=== PATIENT | female | born 1935 | race Hispanic/Latino ===

== ENCOUNTER 2020-09-21 06:19 | Day surgery (SDC) | payer MEDICARE ==
[~2020-09-21 06:19] MED LIST: LACTATED RINGERS 1,000 ML IV SCH
[2020-09-21] MEDS ORDERED: ceFAZolin/Water 2 GM/20 ML 2 GM/20 ML SYRINGE IV NR (08:17)
[2020-09-21] MEDS ORDERED: ONDANSETRON 4 MG/2 ML INJ IV PRN (08:23)
[2020-09-21] MEDS ORDERED: fentaNYL 100 MCG/2 ML INJ IV PRN (08:23)
--- NOTE | 2020-09-21 08:23 | Anesthesia Consultation ---
Anesthesia Consult and Med Hx Date of service: 09/21/20 - Airway Anesthetic Teeth Evaluation: Dentures (full upper and lower) ROM Head & Neck: Adequate Mental/Hyoid Distance: Adequate Mallampati Class: Class II Intubation Access Assessment: Probably Good - Pulmonary Exam CTA: Yes - Cardiac Exam Cardiac Exam: RRR - Pre-Operative Health Status ASA Pre-Surgery Classification: ASA3 Proposed Anesthetic Plan: General - Pulmonary Hx Smoking: Yes (quit >25yrs ago) Hx Respiratory Symptoms: No Hx Sleep Apnea: No (DARIANA PRE SCREEN LOW RISK) - Cardiovascular System Hx Hypertension: Yes (took antihypertensives this morning) Hx Heart Attack/AMI: No Hx Percutaneous Transluminal Coronary Angioplasty (PTCA): No Hx Cardia Arrhythmia: No - Central Nervous System CVA: No - Gastrointestinal Hx Gastroesophageal Reflux Disease: No (esophageal stricture s/p dilatations) - Endocrine Hx Renal Disease: No Hx Liver Disease: No Hx Insulin Dependent Diabetes: No Hx Non-Insulin Dependent Diabetes: No Hx Hypothyroidism: Yes (took synthroid this morning) - Other Systems Hx Obesity: Yes (BMI 30) - Additional Comments Anesthesia Medical History Comments: No hx anesthetic complications.
--- NOTE | 2020-09-21 08:23 | Anesthesia Day of Surgery ---
Anesthesia Day of Surgery - Day of Surgery Patient Examined: Yes Patient H&P Reviewed: Yes Patient is NPO: Yes
[2020-09-21] MEDS ORDERED: fentaNYL 100 MCG/2 ML INJ ONE (09:26)
[2020-09-21] MEDS ORDERED: LIDOCAINE MPF (2%) 20 MG/1 ML VIAL 5 ML ONE (09:26)
[2020-09-21] MEDS ORDERED: propofoL 200 MG/20 ML VIAL IV ONE (09:26)
[2020-09-21] MEDS ORDERED: WATER FOR IRRIG STERILE 2000 ML IR ONE ×2 (10:03)
[2020-09-21] MEDS ORDERED: WATER FOR IRRIG STERILE 1,500 ML BOTTLE IR ONE (10:03)
[2020-09-21] MEDS ORDERED: ONDANSETRON 4 MG/2 ML INJ ONE (10:20)
[2020-09-21] MEDS ORDERED: ePHEDrine SULFATE 50 MG/1 ML INJ ONE (10:20)
--- NOTE | 2020-09-21 10:32 | Post Operative Note ---
Date of procedure: 09/21/20 Pre-op diagnosis: incontinence Post-op diagnosis: same Findings: pipestem Procedure: cysto bx coaptitie Anesthesia: GETA Surgeon: JAKE LAM Estimated blood loss: none Pathology: list (bladder) Specimen disposition: to lab Condition: stable Disposition: PACU
--- NOTE | 2020-09-21 10:32 | Discharge Summary ---
Short Stay Discharge Plan Activity: other (straining ) Weight Bearing Status: Full Weight Bearing Diet: low fat, low cholesterol, low salt Durable Medical Equipment Needed Upon Discharge: other (inc fluids ) Follow up with: NEGIN PINZON MD [Primary Care Provider] - 7 Days
--- NOTE | 2020-09-21 11:03 | Operative Report ---
PREOPERATIVE DIAGNOSES: Pipe-stem urethra, severe incontinence. POSTOPERATIVE DIAGNOSES: Pipe-stem urethra, severe incontinence. PROCEDURE: Cystoscopy, bladder biopsy, insertion of the coaptate. SURGEON: Dr. Lopez. ANESTHESIA: General. 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 She now presents for treatment. DESCRIPTION OF PROCEDURE: The patient was brought to the operating room and placed on the operating table. Following induction of anesthesia, placed in lithotomy position, prepped and draped in usual sterile fashion. Cystourethroscopy showed evidence of cystitis cystica. Biopsy was taken, area was cauterized. The coaptate was assembled and we used 1 syringe on each side. The patient tolerated the procedure well. There was a good coapting of the urethra, especially compared to preop. We only had 2 syringes, so we did use them both and she tolerated the procedure well. No significant bleeding, no catheter was left, brought to recovery in stable condition. JOB# [id number] DONNA/DAVID
[2020-09-21 11:16] VITALS: BP 142/50
--- NOTE | 2020-09-21 13:56 | Post Anesthesia Evaluation ---
- Post Anesthesia Evaluation Patient Participated: Yes Airway Patent: Yes Stable Respiratory Function: Yes Nausea/Vomiting: No Temp > 96.8F: Yes Pain Manageable: Yes Adequeate Hydration: Yes Anesthesia Complications: No
== END 2020-09-21 12:10 | disposition home or self-care (01) ==
LOC: OR 06:19
PROVIDERS: ATTEND Urology
DX: N39.498 Other specified urinary incontinence (principal); N36.8 Other specified disorders of urethra; Z20.828 Contact with and (suspected) exposure to other viral communicable diseases; N30.20 Other chronic cystitis without hematuria; E78.00 Pure hypercholesterolemia, unspecified; I10 Essential (primary) hypertension; G43.909 Migraine, unspecified, not intractable, without status migrainosus; E66.9 Obesity, unspecified; E03.9 Hypothyroidism, unspecified; Z79.899 Other long term (current) drug therapy; Z88.5 Allergy status to narcotic agent; Z88.8 Allergy status to other drugs, medicaments and biological substances; Z98.41 Cataract extraction status, right eye; Z98.42 Cataract extraction status, left eye; Z68.30 Body mass index [BMI] 30.0-30.9, adult; Z98.890 Other specified postprocedural states; Z86.2 Personal history of diseases of the blood and blood-forming organs and certain disorders involving the immune mechanism
CPT/HCPCS: 52204; 88305; A4217; J0690; J2405; J2704; J3010; J7120; U0003; 88341; 88342